=== PATIENT | male | born 1995 | race Caucasian/White ===

== ENCOUNTER 2016-09-23 11:40 | Emergency (ER) | payer SELFPAY | END 2016-09-23 13:35 | disposition home or self-care (01) | LOC: ER1 11:40 | DX: L02.416 Cutaneous abscess of left lower limb (principal); I10 Essential (primary) hypertension; F17.210 Nicotine dependence, cigarettes, uncomplicated | CPT/HCPCS: 10061; 87070; 87077; 87186; 87205; 99283 ==

== ENCOUNTER 2020-06-10 23:14 | Emergency (ER) | payer OTHER ==
[~2020-06-10 23:14] MED LIST: CYCLOBENZAPRINE10 MG PO; IBUPROFEN600 MG PO; IBUPROFEN800 MG PO
== END 2020-06-11 03:20 | disposition home or self-care (01) ==
LOC: ER1 23:14
DX: T40.1X1A Poisoning by heroin, accidental (unintentional), initial encounter (principal); R40.4 Transient alteration of awareness; I10 Essential (primary) hypertension
CPT/HCPCS: 96374; 99284; J2405

== ENCOUNTER 2021-01-09 17:07 | Emergency (ER) | payer OTHER ==
[2021-01-09] MEDS ORDERED: NARCAN4 MG (17:38)
== END 2021-01-09 17:45 | disposition left against medical advice (07) ==
LOC: ER1 17:07
DX: T40.1X1A Poisoning by heroin, accidental (unintentional), initial encounter (principal); I10 Essential (primary) hypertension; F17.200 Nicotine dependence, unspecified, uncomplicated
CPT/HCPCS: 99284